=== PATIENT | female | born 1940 | race Caucasian/White ===

== ENCOUNTER 2020-08-01 10:57 | Day surgery (SDC) | payer MEDICARE ==
[~2020-08-01 10:57] MED LIST: CHONDR SU A NA/HYALUR INTRAOC KIT (SURGICARE) ONE; EPINEPHRINE INJ/PF 1 MG/1 ML AMPULE ONE; KETOROLAC TROMETHAMINE 0.45% 4 DROP/0.4 ML DROPERETTE OS PRN; LIDOCAINE 1%/PHENYLEPHRINE 1.5% 1 ML VIAL ONE
[2020-08-01] MEDS: TROPICAMIDE 1% OPH SOLN 15 ML OS PRN ×3 (11:20→11:40)
[2020-08-01] MEDS: CYCLOPENTOLATE 0.2%/PHENYLEPHRINE 1% OPH SOLN 2 ML OS PRN ×3 (11:20→11:40)
[2020-08-01] MEDS ORDERED: ONDANSETRON HCL INJ/PF 4 MG/2 ML SDV ONE (11:20)
[2020-08-01] MEDS ORDERED: FENTANYL CITRATE INJ/PF 100 MCG/2 ML AMPUL ONE (11:20)
[2020-08-01] MEDS ORDERED: MIDAZOLAM 2 MG/2 ML INJ ONE (11:20)
[2020-08-01] MEDS: TETRACAINE HCL 0.5% OPH SOLN 4 ML OS PRN ×3 (11:20→11:43)
[2020-08-01] MEDS: BESIFLOXACIN HCL 0.6% OPH SUSP 5 ML BOTTLE OS PRN ×4 (11:20→12:01)
[2020-08-01] MEDS: PREDNISOLONE ACETATE 1% OPH SUSP 5 ML OS PRN ×2 (12:01)
[2020-08-01] MEDS: DORZOLAMIDE HCL 2%/TIMOLOL MALEAT 0.5% OPH SOLN 10 ML OS PRN ×2 (12:01)
--- NOTE | 2020-08-01 13:21 | Operative Report ---
[facility] Operative Report: DATE OF SURGERY: August 01, 2020 PREOPERATIVE DIAGNOSIS: NUCLEAR CATARACT, LEFT EYE. POSTOPERATIVE DIAGNOSIS: NUCLEAR CATARACT, LEFT EYE. PROCEDURE PERFORMED: PHACOEMULSIFICATION WITH POSTERIOR CHAMBER INTRAOCULAR LENS IMPLANT, LEFT EYE. SURGEON: Thomas Batres DO MEDICATIONS AND ANESTHESIA: Versed: IV Versed Tetracaine drops: 1 to 2 drops given as needed COMPLICATION: None INDICATIONS FOR SURGERY: Medical necessity: Best corrected visual acuity worse than 20/40 secondary to cataracts with impairment of ability to carry out needs or desired activities, blurred vision, visual distortion, reduced contrast sensitivity and/or glare with association functional impairment and supporting documentation/testing, and cataracts causing symptomatic impairment of visual functions not corrected with tolerable changes in glasses or contact lenses interfering with activities of daily life. PROCEDURE: Consent: The risks, benefits and alternatives of this procedures was discussed with the patient. The patient read and signed the consent forms, was identified and was seated in the exam chair. IOL: MX 60 E 16.5 IOL Diopters: Phacoemulsification with posterior chamber intraocular lens implant: The face was prepped with 5% povidone iodine solution, and a few drops of 5% povidone iodine solution was instilled into the inferior fornix. A non-fenestrated drape was placed over the eye and the lids were parted with the speculum. A paracentesis was made with a 15 degree blade, and 1% lidocaine MPF followed by viscoelastic was injected into the anterior chamber. A 2.4 mm metal micro- keratome was used to create a temporal clear corneal incision. A circular anterior capsulorrhexis was created, followed by hydro-dissection and hydro- delineation. The phacoemulsification hand piece was inserted and the nucleus was removed with the Phaco chop technique. The irrigation-aspiration hand piece was used to remove the residual cortex, and vacuum the posterior capsule. The capsular bag was inflated and viscoelastic and the above-mentioned IOL was injected into the eye with care to insert both leaning and trailing haptics in the capsular bag. The irrigation/aspiration hand piece was reinserted to remove residual viscoelastic from the capsular bag and anterior chamber. The corneal incision was hydrated, and anterior chamber was inflated with sterile BSS via the paracentesis site, and found to be watertight. Postop medication:1 drop of prednisolone into operative by followed by 1 drop of Cosopt into operative eye followed by 1 drop of Besivance intraoperative by Other:
--- OUTSIDE RECORDS SUMMARY | 2020-08-02 18:30 | XMS REPORT ---
:1940 Author Organization [facility] Address [address] [address] Care Team Providers Name Role Phone LUPIS MARTIN Attending Clinician Unavailable ARRON BURR Attending Clinician Unavailable Allergies, Adverse Reactions, Alerts Allergy Name Allergy Status Severity Reaction(s) Onset Inactive Treat ing Comments Type Date Date Clinician Penicillins Allergy to Active substance Medications Ordered Filled Start Stop Current Ordering Indication Dosage Frequency Signature Comments Components Medication Medication Date Date Medication? Clinician (SIG) Name Name clopidogrel No clopidogre 75 mg l 75 mg tablet TAKE tablet 1 TABLET BY TAKE 1 MOUTH EVERY TABLET BY DAY MOUTH EVERY DAY Flovent HFA No 1puff(s BID Flovent 220 ) HFA 220 mcg/actuati mcg/actuat on aerosol ion inhaler aerosol Inhale 1 inhaler puff twice Inhale 1 a day by puff twice inhalation a day by route. inhalation route. Forteo 20 No .08mL Q1D Forteo 20 mcg/dose mcg/dose (600 (600 mcg/2.4 mL) mcg/2.4 subcutaneou mL) s pen subcutaneo injector us pen Inject 0.08 injector mL every Inject day by 0.08 mL subcutaneou every day s route. by subcutaneo us route. gabapentin No gabapentin 300 mg 300 mg capsule capsule TAKE 1 TAKE 1 CAPSULE BY CAPSULE BY MOUTH TWICE MOUTH A DAY TWICE A DAY ProAir HFA No 3puff(s 6xD ProAir HFA 90 ) 90 mcg/actuati mcg/actuat on aerosol ion inhaler aerosol Inhale 3 inhaler puffs 6 Inhale 3 times a day puffs 6 by times a inhalation day by route as inhalation needed. route as needed. tramadol 50 No tramadol mg tablet 50 mg Take 1 tablet tablet Take 1 twice a day tablet by oral twice a route. day by oral route. Symbicort No Symbicort 160 mcg-4.5 160 mcg/actuati mcg-4.5 on HFA mcg/actuat aerosol ion HFA inhaler aerosol INHALE 1 inhaler PUFF(S) INHALE 1 TWICE A DAY PUFF(S) BY TWICE A INHALATION DAY BY ROUTE.
INHALATION ROUTE.
Ventolin No Ventolin HFA 90 HFA 90 mcg/actuati mcg/actuat on aerosol ion inhaler aerosol INHALE 2 inhaler PUFFS BY INHALE 2 MOUTH 3 PUFFS BY TIMES A DAY MOUTH 3 NEEDED TIMES A DAY NEEDED albuterol No albuterol sulfate HFA sulfate 90 HFA 90 mcg/actuati mcg/actuat on aerosol ion inhaler aerosol INHALE 2 inhaler PUFFS BY INHALE 2 MOUTH 3 PUFFS BY TIMES A DAY MOUTH 3 NEEDED TIMES A DAY NEEDED Besivance No Besivance 0.6 % eye 0.6 % eye drops,suspe drops,susp nsion ension Durezol No Durezol 0.05 % eye 0.05 % eye drops drops Prolensa No Prolensa 0.07 % eye 0.07 % eye drops drops Problems Condition Condition Condition Status Onset Resolution Last Treatin g Comments Name Details Category Date Date Treatment Clinician Date Essential Essential Problem Active 2019-09 hypertensio Hypertensio 0-30 n n 00:00: 00 Neuropathy Neuropathy Problem Active 4-30 00:00: 00 Mild Mild Problem Active 2017-09 chronic Chronic 0-30 obstructive Obstructive 00:00: pulmonary Pulmonary 00 disease Disease Osteoporosi Osteoporosi Problem Active s s 9-12 00:00: 00 Deep venous Deep Venous Problem Active thrombosis Thrombosis 04-13 00:00: 00 Asthma Asthma Problem Active 04-13 00:00: 00 Procedures Procedure Date / Time Performed Performing Clinician Devic e Angioplasty Results Test Description Test Time Test Comments Text Results Atomic Results Result Comments [facility] 2017-04-[address] [address] [id number] [place] 11:31:00 ---- IMAGING Patient: KIM GREGORY : 1940 Sex: F Address: [address] [facility] [place] [id number] Unit #: [id number] REQ SEQ #: [id number] Location: [facility] Room #: Ordering: SYDNEY BURR PA-C Diagnosis: M545 ---- MR LUMBAR S PINE, WITHOUT CONTRAST Indication: Low back pain Comparison: None. Technique: Multi-planar T1, T2, and STIR weighted MR images of the lumbar spine wer e obtained without gadolinium. Findings: There are compression fractures of the L2 and L3 vertebral bodies with approximately 85% loss of height at L3 and 50% loss of height at L4. There is a large Schmorl's node along the inferior endplate of L1 as well. There is a small amount of edema within the L3 vertebral body suggesting this may be in part subacute. However, there is no paraspinal hematoma or soft tissue swelling. The conus medullaris is at the T12 level. There is multilevel disc desiccation and loss of disc space height across the lumbar spine. L1/L2, diffuse broad-based disc bulge and ligamentum flavum thickenin g with mild central canal stenosis. There is also inferior neuroforaminal narrowing. There is no nerve root compression. L2/L3, diffuse broad-based disc bulge and ligamentum flavum thickening with minimal retropulsion of the superior endplate of L3 into the spinal canal resulting in moderate to severe central c anal stenosis. Moderate degenerative facet disease bilaterally with bilateral neuroforaminal narrowing. No nerve root compression. L3/L4, diffuse broad-ba sed disc bulge and ligamentum flavum thickening with moderate to severe central canal stenosis. There is severe neuroforaminal stenosis on the left with compre ssion of the exiting left L3 nerve root. Moderate right neuroforaminal narrowing and moderate to severe degenerative facet disease are also noted. L4/L5, diff use broad-based disc bulge with mild central canal stenosis. Mild to moderate degenerative facet disease. Inferior neuroforaminal narrowing bilaterally with out nerve root compression. L5/S1, right foraminal disc protrusion which contacts the exiting right L5 nerve root without compression. No significant cent ral canal stenosis. Moderate degenerative facet disease. Impression: 1. Chronic compression fractures of L2 and L3 with approximately 50% loss of height a t L2 and the percent loss of height at L3. There is a small amount of edema within the L3 vertebral body suggesting a superimposed small subacute component. 2. Multilevel degenerative disc disease with moderate central canal stenosis at L1/L2 and moderate to severe central canal stenosis at L2/L3-L3/L4. 3. Multilevel de generative facet disease. 4. Neuroforaminal stenosis is most pronounced at L3/L4 asymmetric to the left Final report electronically signed by: Shavon houser MD Signed by: SHAVON RUBY MD 04/13/17 1127 cc: SHAVON RUBY MD, MELVIN PA-C [facility] 2017-04-[address] [address] [id number] [place] 11:28:00 ---- IMAGING Patient: KIM GREGROY : 1940 Sex: F Address: [address] [place] [id number] Unit #: [id number] REQ SEQ #: [id number] Location: [facility] Room #: Ordering: SYDNEY BURR PA-C Diagnosis: M545 ---- Indication: Lower back pain. Findings: Axial, sagittal and coronal MRI images of the pelvis were obtained. Lack of gadolinium diminishes the sensitivity for solid viscer al organ masses and vascular pathology. No evidence of a hip fracture or dislocation or avascular necrosis. Mild osteoarthritis of the right hip. There is diffuse edema within the left sacral ala which is partially included in the yymrm-sy-acra on the coronal sequences and is highly suspicious for an insufficiency fr acture, nondisplaced insufficiency fracture of the left sacral ala. Impression: Subtle nondisplaced fracture of the left sacral ala suspected most likely due to a nondisplaced insufficiency fracture of the left sacral ala. No evidence of pelvic abscess. The urinary bladder and uterus have a normal appearance. No l ymphadenopathy. No hip fracture or avascular necrosis. Incidental note of gallstones within the inferior aspect of the gallbladder which is only partially imaged . Final report electronically signed by: Tima Fajardo MD Signed by: TIMA FAJARDO MD 04/13/17 [id number] cc: SYDNEY BURR PA-C, DOUGLAS J MD [facility] 2017-03-[address] [id number] 09:36:00 ---- Patient: CAROLYNE MARIA LUISAFRANCINE PENAANOR PLACIDO : 1940 Sex: F Address: [address] [place] [id number] Unit #: [id number] [facility] SEQ #: [id number] Location: [facility] Room #: Ordering: LUPIS MARTIN MD Diagnosis: ATHEROSCLEROSIS OF AORTA ---- US AORTA DO PPLER Clinical Information: ATHEROSCLEROSIS OF AORTA Doppler evaluation of the abdominal aorta was performed.. Evaluation includes the systolic velocit ies, systolic gradients, waveforms and spectral analysis. Longitudinal and transverse images demonstrate atherosclerotic changes in the abdominal aorta but no evidence of aneurysmal dilatation. The abdominal aorta measures 2 x 1.9 cm in maximum AP and transverse diameters. The right common iliac artery could not be visualized. The left common iliac artery is normal in caliber measuring 0.84 cm in diameter. The peak systolic/end-diastolic velocities in the abdominal ao rta measure 79/18 cm/s proximally and 64/10 cm/s distally. The peak systolic/end-diastolic velocity in the left common iliac artery measures 92/9 cm/s. The peak s ystolic/end diastolic velocities in the celiac and superior mesenteric arteries measure 146/32 cm/s and 141/15 cm/s respectively. The peak systolic/end-parisa stolic velocities in the proximal renal arteries measure 144/26 cm/s on the right side and 106/24 cm/s on the left side. The peak systolic/end-parisa stolic velocities in the distal external iliac arteries measure 134/7 cm/s on the right side and 142/4 cm/s on the left side. Impression: 1. Atherosclerot ic changes in the abdominal aorta without evidence of aneurysmal dilatation. 2. Otherwise unremarkable. Final report electronically signed by: Jun Flores MD Signed by: JUN FLORES MD 03/09/17 0932 cc: JUN FLORES MD, LISA G MD Assessments Condition Name Status Diagnosis Date Treating Clinici an Osteoporosis Active 2020-07-20 08:08:00 Administration of influenza vaccine Active 2020-07-20 1 0:12:14 Essential hypertension Active 2020-07-20 10:39:09 Mild chronic obstructive pulmonary Active 2020-06-19 10 :17:20 disease Osteoporosis Active 2020-06-19 10:28:47 Tear of skin Active 2020-06-19 10:33:36 Deep venous thrombosis Active 2020-06-19 10:34:07 Hyperlipidemia Active 2020-06-19 10:42:23 Mild chronic obstructive pulmonary Active 2020-03-19 11 :01:03 disease Osteoporosis Active 2020-03-19 11:17:25 Deep venous thrombosis Active 2020-03-19 11:17:26 Counseling Active 2019-07-27 09:37:21 Influenza vaccination Active 2019-07-27 10:15:03 Pneumococcal vaccination Active 2019-07-27 10:15:18 Osteoporosis Active 2019-07-27 10:15:33 Mild chronic obstructive pulmonary Active 2019-07-27 10 :16:51 disease Neuropathy Active 2019-07-27 10:35:39 Osteoporosis Active 2019-07-08 10:14:24 Mild chronic obstructive pulmonary Active 2019-07-08 13 :16:18 disease Mild chronic obstructive pulmonary Active 2019-06-02 11 :13:33 disease Osteoporosis Active 2019-06-02 11:42:34 Mild chronic obstructive pulmonary Active 2019-03-02 09 :10:22 disease Chronic back pain Active 2019-03-02 09:45:35 Abnormal weight loss Active 2019-03-02 09:50:36 Mild chronic obstructive pulmonary Active 2019-01-18 09 :12:25 disease Deep venous thrombosis Active 2019-01-18 09:12:27 Osteoporosis Active 2019-01-18 09:12:28 Neuropathy Active 2019-01-18 09:30:48 Encounters Start End Encounter Admission Attending Care Care Encounter Date/Time Date/Time Type Type Clinicians Facility Department ID 2020-07-20 2020-07-20 Lolly Vences Lin Ceballos [id number] 00:00:00 00:00:00 Ingrid [facility] [address] : [address] [place] [address], Ph. 2020-06-19 2020-06-19 Outpatient [facility] [id number] 13:25:00 13:25:00 LUPIS 31 2020-06-19 2020-06-19 Lupis Ceballos [id number] _[id number] 00:00:00 00:00:00 MD Veronica: Medical Medical [address] [address] [facility] [address] [place] [address], Ph. 2020-03-19 2020-03-19 Lupis Ramirez [place] [id number] _[id number] 00:00:00 00:00:00 MD Veronica: Medical Medical [address] [address] [place] [facility] [facility] [address] [place] [address], Ph. 2019-07-27 2019-07-27 Outpatient VERONICA, [facility] [id number] 12:44:00 12:44:00 LUPIS 2019-07-27 2019-07-27 Lupis Ramirez [place] [id number] _[id number] 00:00:00 00:00:00 MD Veronica: Medical Medical [address] [address] [place] [facility] [address] [facility] [place] [address], Ph. 2019-07-08 2019-07-08 Lolly Ceballos Wayne [id number] 00:00:00 00:00:00 [facility] Medical Medical [id number] : [facility], [facility] [place] [address], Ph. 2019-06-02 2019-06-02 Lupis Bullarderet Wayne [id number] _[id number] 00:00:00 00:00:00 MD Veronica: Medical Medical [address] [address] [place] [facility], [facility] [address] [place] [address], Ph. 2019-03-02 2019-03-02 Lupisneal Ramirez [place] [id number] _[id number] 00:00:00 00:00:00 MD Veronica: Medical Medical [address] [address] [place] [facility] [facility] [address] [place] [address], Ph. 2019-01-18 2019-01-18 Lupisneal Ramirez Waynechinedu Romant [id number] _[id number] 00:00:00 00:00:00 MD Veronica: Medical Medical [address] [address] [place] [facility], [facility] [place] [address], Ph. 2017-07-07 2017-07-07 Outpatient JT MARTIN, [facility] [id number] 11:01:00 11:01:00 LUPIS 71 2017-04-15 2017-04-15 Outpatient VERONICA, [facility] [id number] 10:58:00 10:58:00 LUPIS 96 2017-04-13 2017-04-13 Outpatient AMINAH, [facility] [id number] 08:43:00 08:43:00 SYDNEY 51 2017-04-06 2017-04-06 Outpatient VERONICA, [facility] [id number] 09:26:00 09:26:00 LUPIS 51 2017-03-09 2017-03-09 Outpatient VERONICA, [facility] [id number] 08:16:00 08:16:00 LUPIS 50 2017-02-27 2017-02-27 Outpatient VERONICA, [facility] [id number] 10:42:00 10:42:00 LUPIS 97 Immunizations Ordered Immunization Filled Immunization Date Status Commen ts Refusal Reason Name Name Influenza, injectable, 2020-07-20 Completed MDCK, preservative 10:12:26 free, quadrivalent Influenza, injectable, 2019-07-27 Completed MDCK, quadrivalent 10:51:00 pneumococcal 2019-07-27 Completed polysaccharide PPV23 10:50:00 pneumococcal conjugate 2018-07-20 Completed PCV 13 12:10:00 Influenza, injectable, 2018-07-20 Completed MDCK, preservative 12:05:00 free, quadrivalent Influenza, injectable, 2017-07-20 Completed MDCK, preservative 10:52:00 free, quadrivalent tetanus toxoid, 2015-06-27 Completed unspecified 00:00:00 formulation Payers Payer Name Policy Type Policy Number Effective Date Expiration D ate Plan of Treatment Planned Activity Planned Date Details Comments Future Appointment 2020-09-25 10:40:00 Lolly Trinidad [address] , [place] [address] Future Appointment 2020-09-25 10:00:00 [facility], [address] , [place] [address] Future Appointment 2020-09-24 11:00:00 ЕКАТЕРИНА [place], [address], [place] [address] Future Appointment 2020-08-22 10:15:00 Lupis Martin, [address], [place] [address] Future Appointment 2020-08-22 09:45:00 Ricoo Luc [facility] Nurse, [address] , [place] [address] Social History Smoking Status Start Date Stop Date Light Tobacco Smoker Heavy Tobacco Smoker Vital Signs Vital Name Observation Time Observation Value Comments BP Diastolic 2020-07-20 00:00:00 92 mm[Hg] Height 2020-07-20 00:00:00 62.1 [in_i] BMI (Body Mass Index) 2020-07-20 00:00:00 20.2 kg/m2 BP Systolic 2020-07-20 00:00:00 178 mm[Hg] Body Weight 2020-07-20 00:00:00 111 [lb_av] BP Diastolic 2020-06-19 00:00:00 86 mm[Hg] Height 2020-06-19 00:00:00 62.1 [in_i] BMI (Body Mass Index) 2020-06-19 00:00:00 20.4 kg/m2 BP Systolic 2020-06-19 00:00:00 195 mm[Hg] Body Weight 2020-06-19 00:00:00 111.8 [lb_av] BP Systolic 2020-03-19 00:00:00 184 mm[Hg] Body Weight 2020-03-19 00:00:00 107.8 [lb_av] BP Diastolic 2020-03-19 00:00:00 87 mm[Hg] Height 2020-03-19 00:00:00 62.1 [in_i] BMI (Body Mass Index) 2020-03-19 00:00:00 19.7 kg/m2 BP Diastolic 2019-07-27 00:00:00 76 mm[Hg] Height 2019-07-27 00:00:00 62.1 [in_i] BMI (Body Mass Index) 2019-07-27 00:00:00 19 kg/m2 BP Systolic 2019-07-27 00:00:00 151 mm[Hg] Body Weight 2019-07-27 00:00:00 104 [lb_av] BP Diastolic 2019-07-08 00:00:00 58 mm[Hg] Height 2019-07-08 00:00:00 62.1 [in_i] BMI (Body Mass Index) 2019-07-08 00:00:00 19.4 kg/m2 BP Systolic 2019-07-08 00:00:00 118 mm[Hg] Body Weight 2019-07-08 00:00:00 106.5 [lb_av] BP Diastolic 2019-06-02 00:00:00 75 mm[Hg] Height 2019-06-02 00:00:00 62.1 [in_i] BMI (Body Mass Index) 2019-06-02 00:00:00 19.5 kg/m2 BP Systolic 2019-06-02 00:00:00 137 mm[Hg] Body Weight 2019-06-02 00:00:00 106.9 [lb_av] BP Diastolic 2019-03-02 00:00:00 78 mm[Hg] Height 2019-03-02 00:00:00 62.1 [in_i] BMI (Body Mass Index) 2019-03-02 00:00:00 19.4 kg/m2 BP Systolic 2019-03-02 00:00:00 169 mm[Hg] Body Weight 2019-03-02 00:00:00 106.6 [lb_av] BP Diastolic 2019-01-18 00:00:00 81 mm[Hg] Height 2019-01-18 00:00:00 62.1 [in_i] BMI (Body Mass Index) 2019-01-18 00:00:00 19.6 kg/m2 BP Systolic 2019-01-18 00:00:00 156 mm[Hg] Body Weight 2019-01-18 00:00:00 107.5 [lb_av] Hospital Discharge Instructions 1. Osteoporosis 2. Administration of influenza vaccine Flucelvax Quad 2020 (PF) 60 mcg (15 mcg x 4)/0.5 mL IM syringe 3. Essential hypertension Discussion Note: None recorded. Patient educational handouts: No information available.1. Mild chronic obstructive pulmonary disease albuterol sulfate HFA 90 mcg/actuation aerosol inhaler 2. Osteoporosis 3. Tear of skin 4. Deep venous thrombosis clopidogrel 75 mg tablet 5. Hyperlipidemia lipid panel, serum CMP, serum or plasma Discussion Note: None recorded. Patient educational handouts: No information available.1. Mild chronic obstructive pulmonary disease 2. Osteoporosis 3. Deep venous thrombosis Discussion Note: None recorded. Patient educational handouts: No information available.1. Osteoporosis 2. Mild chronic obstructive pulmonary disease Discussion Note: None recorded. Patient educational handouts: No information available.1. Mild chronic obstructive pulmonary disease 2. Osteoporosis Discussion Note labs at f/u appt in Nov Patient educational handouts: No information available.1. Mild chronic obstructive pulmonary disease ProAir HFA 90 mcg/actuation aerosol inhaler 2. Chronic back pain 3. Abnormal weight loss Discussion Note: None recorded. Patient educational handouts: No information available.1. Mild chronic obstructive pulmonary disease ProAir HFA 90 mcg/actuation aerosol inhaler Flovent HFA 220 mcg/actuation aerosol inhaler 2. Deep venous thrombosis 3. Osteoporosis 4. Neuropathy Discussion Note: None recorded. Patient educational handouts: No information available.
== END 2020-08-01 12:34 | disposition home or self-care (01) ==
LOC: SC 10:57
PROVIDERS: ATTEND Ophthalmology
DX: H25.12 Age-related nuclear cataract, left eye (principal); J44.9 Chronic obstructive pulmonary disease, unspecified; F17.210 Nicotine dependence, cigarettes, uncomplicated
CPT/HCPCS: 66984; J2250; J3490 ×2; A9270; J0171; J2405; J3010; V2632

== ENCOUNTER 2020-08-22 08:05 | Day surgery (SDC) | payer MEDICARE ==
[~2020-08-22 08:05] MED LIST changes: -CHONDR SU A NA/HYALUR INTRAOC KIT (SURGICARE) ONE; -EPINEPHRINE INJ/PF 1 MG/1 ML AMPULE ONE; +KETOROLAC TROMETHAMINE 0.45% 4 DROP/0.4 ML DROPERETTE OD PRN; -KETOROLAC TROMETHAMINE 0.45% 4 DROP/0.4 ML DROPERETTE OS PRN; -LIDOCAINE 1%/PHENYLEPHRINE 1.5% 1 ML VIAL ONE
[2020-08-22] MEDS: BESIFLOXACIN HCL 0.6% OPH SUSP 5 ML BOTTLE OD PRN ×4 (08:50→09:46)
[2020-08-22] MEDS: TROPICAMIDE 1% OPH SOLN 15 ML OD PRN ×3 (08:50→09:10)
[2020-08-22] MEDS: CYCLOPENTOLATE 0.2%/PHENYLEPHRINE 1% OPH SOLN 2 ML OD PRN ×3 (08:50→09:10)
[2020-08-22] MEDS: TETRACAINE HCL 0.5% OPH SOLN 4 ML OD PRN ×4 (08:51→09:24)
[2020-08-22] MEDS ORDERED: MIDAZOLAM 2 MG/2 ML INJ ONE (09:14)
[2020-08-22] MEDS: CHONDR SU A NA/HYALUR INTRAOC KIT (SURGICARE) ONE ×2 (09:35)
[2020-08-22] MEDS: EPINEPHRINE INJ/PF 1 MG/1 ML AMPULE ONE ×2 (09:35)
[2020-08-22] MEDS: LIDOCAINE 1%/PHENYLEPHRINE 1.5% 1 ML VIAL ONE ×2 (09:35)
[2020-08-22] MEDS: DORZOLAMIDE HCL 2%/TIMOLOL MALEAT 0.5% OPH SOLN 10 ML OD PRN ×2 (09:46)
[2020-08-22] MEDS: PREDNISOLONE ACETATE 1% OPH SUSP 5 ML OD PRN ×2 (09:46)
--- NOTE | 2020-08-22 16:34 | Operative Report ---
[facility]ative [facility] Operative Report: DATE OF SURGERY: August 22, 2020 PREOPERATIVE DIAGNOSIS: NUCLEAR CATARACT, RIGHT EYE. POSTOPERATIVE DIAGNOSIS: NUCLEAR CATARACT, RIGHT EYE. PROCEDURE PERFORMED: PHACOEMULSIFICATION WITH POSTERIOR CHAMBER INTRAOCULAR LENS IMPLANT, RIGHT EYE. SURGEON: Thomas Batres DO MEDICATIONS AND ANESTHESIA: Versed: IV Versed Tetracaine drops: 1 to 2 drops given as needed COMPLICATION: None INDICATIONS FOR SURGERY: Medical necessity: Best corrected visual acuity worse than 20/40 secondary to cataracts with impairment of ability to carry out needs or desired activities, blurred vision, visual distortion, reduced contrast sensitivity and/or glare with association functional impairment and supporting documentation/testing, and cataracts causing symptomatic impairment of visual functions not corrected with tolerable changes in glasses or contact lenses interfering with activities of daily life. PROCEDURE: Consent: The risks, benefits and alternatives of this procedures was discussed with the patient. The patient read and signed the consent forms, was identified and was seated in the exam chair. IOL: MX 60 E 16.5 IOL Diopters: Phacoemulsification with posterior chamber intraocular lens implant: The face was prepped with 5% povidone iodine solution, and a few drops of 5% povidone iodine solution was instilled into the inferior fornix. A non-fenestrated drape was placed over the eye and the lids were parted with the speculum. A paracentesis was made with a 15 degree blade, and 1% lidocaine MPF followed by viscoelastic was injected into the anterior chamber. A 2.4 mm metal micro- keratome was used to create a temporal clear corneal incision. A circular anterior capsulorrhexis was created, followed by hydro-dissection and hydro- delineation. The phacoemulsification hand piece was inserted and the nucleus was removed with the Phaco chop technique. The irrigation-aspiration hand piece was used to remove the residual cortex, and vacuum the posterior capsule. The capsular bag was inflated and viscoelastic and the above-mentioned IOL was injected into the eye with care to insert both leaning and trailing haptics in the capsular bag. The irrigation/aspiration hand piece was reinserted to remove residual viscoelastic from the capsular bag and anterior chamber. The corneal incision was hydrated, and anterior chamber was inflated with sterile BSS via the paracentesis site, and found to be watertight. Postop medication: 1 drop of prednisolone into operative by followed by 1 drop of Cosopt into operative eye followed by 1 drop of Besivance intraoperative by other:
== END 2020-08-22 10:18 | disposition home or self-care (01) ==
LOC: SC 08:05
PROVIDERS: ATTEND Ophthalmology
DX: H25.11 Age-related nuclear cataract, right eye (principal); Z98.42 Cataract extraction status, left eye; J45.909 Unspecified asthma, uncomplicated; E78.00 Pure hypercholesterolemia, unspecified; F17.210 Nicotine dependence, cigarettes, uncomplicated
CPT/HCPCS: 66984; V2632; J2250; J3490 ×2; A9270; J0171; 142